=== PATIENT | male | born 1970 | race Caucasian/White ===

== ENCOUNTER 2020-09-16 15:21 | Outpatient (REF) | payer BC, SELFPAY ==
[2020-09-16 16:29] LABS: Influenza A PCR NEGATIVE (Negative); Influenza B PCR NEGATIVE (Negative); Resp Syncy Virus RNA Qual PCR NEGATIVE (Negative); SARS COV2 PCR INHOUSE NEGATIVE (Negative)
== END 2020-09-16 15:22 | disposition home or self-care (01) ==
LOC: HO.LNP 15:21
PROVIDERS: Visit Provider Internal Medicine
DX: Z20.828 Contact with and (suspected) exposure to other viral communicable diseases (principal)
CPT/HCPCS: 0241U

== ENCOUNTER 2022-07-15 12:05 | Day surgery (SDC) | payer BC, SELFPAY ==
--- NOTE | 2022-07-14 11:53 | HO.ANESPROP2 ---
Documented by User: Coleen Nixon NP 07/14/22 11:53 HPI - Anesthesia Eval Consult details Narrative: 51yo M for Colonoscopy [facility] Surgical History Surgical History Hx of hernia repair Social History Social History Patient Tobacco Use Status: Never used Tobacco Are you DNR?: No Advance Directives: No Advance Directives Information Provided: Yes Recently lost weight without trying: No Nutrition Risks: No Nutritional Risk Meds Allergies Allergy/AdvReac Type Severity Reaction Status Date / Time No Known Allergies Allergy Verified 07/14/22 11:34 Home Medications Medication Instructions Recorded Confirmed Last Taken Type No Known Home Meds 07/14/22 07/14/22 Unknown History Exam Exam Date and Time: July 14, 2022 1153 Assessment and Plan Assessment Anesthesia Assessment: Chart Reviewed Documented by User: Lilia Molina MD 07/15/22 12:53 [facility] Surgical History Surgical History Hx of hernia repair History of Problems with Anesthesia: No Social History Social History Patient Tobacco Use Status: Never used Tobacco Are you DNR?: No Advance Directives: No Advance Directives Information Provided: Yes Recently lost weight without trying: No Nutrition Risks: No Nutritional Risk Meds Allergies Allergy/AdvReac Type Severity Reaction Status Date / Time No Known Allergies Allergy Verified 07/14/22 11:34 Home Medications Medication Instructions Recorded Confirmed Last Taken Type No Known Home Meds 07/14/22 07/14/22 Unknown History Exam Airway Mallampati Class: III TM Dist: >3cm Neck ROM: Full Loose/Missing/Broken Teeth: No Heart: RRR Lungs: CTA Assessment and Plan Assessment Anesthesia Assessment: Anesthesia Plan Discussed and Chart Reviewed Final Anesthetic Review History of Problems with Anesthesia: No NPO: Yes ASA Class: I Final Preanesthetic Review: Meds/Allgs Chart Reviewed, Consent Obtained/Reviewed and Anes Risks/Benef Reviewed Patient Risk: Low Procedure Risk: Low Anesthetic Plan Anesthetic Plan: MAC: Disposition: Standard PACU
[2022-07-15 07:16] VITALS: BMI 25.0
[2022-07-15 12:06] VITALS: BP 123/75; PULSE 54; RESP 16; TEMP 36.6; O2SAT 98
[2022-07-15] MEDS: Lactated Ringers 1,000 ML 100 ML IVCONT (12:28)
--- NOTE | 2022-07-15 12:55 | MHC.SHP ---
Pre-Procedural Eval Section A Date of Service: 07/15/22 Section B Chief Complaint: screening Details of Present Illness: see H&P no changes Relevant Family History (Specify if Yes): No Relevant Social History: None Present Medications: None Medical History: No relevant PMH History of Previous Operations: No relevant previous surgery Allergies: Allergies Allergy/AdvReac Type Severity Reaction Status Date / Time No Known Allergies Allergy Verified 07/14/22 11:34 Review of Systems Sugical H&P ROS: Negative: Constitution, Cardiovascular, Respiratory, Neurological, Psychiatric, Hem-Onc, Allergic/Immunologic, Gastrointestinal, Genitourinary, Musculoskeletal, Integumentary, Endocrine and Eyes/Ears/Nose/Throat Exam Surgical H&P Exam: Normal: HEENT, Normal: Heart, Normal: Lungs, Normal: Extremities, Normal: Abdomen, Normal: Skin and Normal: Neurological Plan Diagnosis/Plan: Unchanged I have reviewed the history and physical and performed a pertinent physical examination on my patient. No changes have occurred unless specified.
--- NOTE | 2022-07-15 13:21 | P.BOP_ITS ---
Brief Operative Note Date of Service: 07/15/22 Pre-op diagnosis: screening Post-op diagnosis: same Procedure: colonoscopy Surgeon: Lion Veloz Anesthesia: MAC Was an Human Resources Vice President used for this Procedure?: No Estimated blood loss (mL): 0 Pathology: other Condition: stable Disposition: PACU
[2022-07-15 13:29] VITALS: BP 118/35; PULSE 56; RESP 17; TEMP 36.2; O2SAT 98
[2022-07-15 13:44] VITALS: BP 113/71; PULSE 53; RESP 16; TEMP 36.2; O2SAT 99
[2022-07-15 13:55] VITALS: BP 117/73; PULSE 52; RESP 16; TEMP 36.2; O2SAT 99
--- NOTE | 2022-07-16 00:22 | OP_ITS ---
SURGEON: Lion Veloz MD INDICATIONS: Colon cancer screening. PREOPERATIVE DIAGNOSIS: POSTOPERATIVE DIAGNOSIS: PROCEDURE PERFORMED: Colonoscopy to the terminal ileum with snare polypectomy on 07/15/22. ESTIMATED BLOOD LOSS: COMPLICATIONS: ANESTHESIA: Monitored anesthesia care. ASSISTANTS: SPECIMENS: DESCRIPTION OF PROCEDURE: History and physical performed. The risks and benefits of the procedure were explained to the patient. Informed consent was obtained. The patient was placed in the left lateral decubitus position. A digital rectal exam was performed and was found to be normal. The Olympus pediatric video colonoscope was introduced into the rectum and advanced to the cecum without difficulty. The cecum was identified by transillumination, palpation, and identification of the ileocecal valve. Examination was performed. The scope was removed. He tolerated the procedure well, returned to recovery area in stable condition. FINDINGS: The terminal ileum was examined and appeared normal. The visualized colonic mucosa was normal. The quality of the prep was excellent. Two polyps measuring less than 10 mm were removed with a snare at 40 and 30 cm respectively and were recovered with suction. No other polyps were identified. Retroflexed examination showed small internal hemorrhoids. IMPRESSION: Colon polyps. RECOMMENDATION: Follow up the biopsy results. MD LITTLE Escalante/[place] / [id number] MTDD
== END 2022-07-15 14:45 | disposition home or self-care (01) ==
PROVIDERS: PCP Internal Medicine; Visit Provider Internal Medicine Gastroenterology
PROC: 0DJD8ZZ Inspection of Lower Intestinal Tract, Via Natural or Artificial Opening Endoscopic (ICD-10-PCS; CPT 45378; principal; 2022-07-15 13:00)
DX: Z12.11 Encounter for screening for malignant neoplasm of colon (principal); K63.5 Polyp of colon; K64.8 Other hemorrhoids
CPT/HCPCS: 45385; 88305

== ENCOUNTER 2025-01-10 13:06 | Outpatient (AMB) | payer BC, SELFPAY ==
--- NOTE | 2025-01-10 13:07 | MHC.PC.OV ---
Vital Signs 01/10/25 13:08 Height 5 ft 10 in Weight 174 lb BMI 25.0 BP 120/76 Blood Pressure Location Lt brachial Position Sitting Pulse 65 Pulse Source Pulse Oximeter Temp 97.6 F Temp Source Axillary Pulse Oximetry (%) 99 Oxygen Delivery Method Room Air Intake Visit Reasons: Routine Otolaryngology Nurse Required: No Accompanied by: Self / Same As Patient Allergies No Known Allergies Allergy (Verified 01/10/25 13:08) Tobacco use date assessed: 01/10/25 Dental Screening Dental Screen Date: 01/10/25 Did you have a dental visit in the last 12 months?: Yes Did you have a dental problem in the last 6 months where you did not have access to dental care?: No [facility] Medical History (Updated 01/10/25 @ 13:48 by Fahad Cazares MD) Spasm of piriformis muscle Surgical History History of colonoscopy (~07/16/22) Hx of hernia repair Family History (Updated 01/10/25 @ 13:23 by Madelin Chu CMA) Mother No problems noted. Father No problems noted. Social History Housing: House Patient Tobacco Use Status: Never used Tobacco e-Cigarette/Vaping Use: Never Used service: No Current occupational status: employed Cognitive needs: No Hearing needs: No Vision needs: Yes (reading glasses) Questionnaire PHQ-9 Over the last 2 weeks, how often have you been bothered by any of the following problems? 1. Little interest or pleasure in doing things: not at all 2. Feeling down, depressed, or hopeless: not at all 3. Trouble falling or staying asleep, or sleeping too much: not at all 4. Feeling tired or having little energy: not at all 5. Poor appetite or overeating: not at all 6. Feeling bad about yourself - or that you are a failure or have let yourself or your family down: not at all 7. Trouble concentrating on things, such as reading the newspaper or watching television: not at all 8. Moving or speaking so slowly that other people could have noticed. Or the opposite - being so fidgety or restless that you have been moving around a lot more than usual: not at all 9. Thoughts that you would be better off or of hurting yourself in some way: not at all Total score: 0 Source: Developed by Drs. Alex Abraham, Anna Sullivan, Kenrick Morales and colleagues, with an educational esperanza from [employer]. Thrive Questionnaire Date Thrive assessed: 01/10/25 I am a: Patient Within the past 12 months, did the food you bought not last and you didn't have the money to get more?: Never true Within the past 12 months, did you worry whether your food would run out before you got money to buy more?: Never true Do you have trouble paying for medicines?: No Do you have trouble getting transportation to medical appointments?: No Do you have trouble paying your heating and electricity bill?: No Do you have trouble taking care of your child, family member or friend?: No Do you have trouble with day-to-day activities such as bathing, preparing meals, shopping, managing finances, etc.?: No Are you currently unemployed and looking for a job?: No Are you interested in more education?: No THRIVE Score: 0 AUDIT C Alcohol Use Questionnaire (AUDIT-C) 1. How often do you have a drink containing alcohol?: Monthly or less 2. How many drinks containing alcohol do you have on a typical day when you are drinking?: 1 or 2 3. How often do you have six or more drinks on one occasion?: Less than monthly Total Score: 2 MORENITA-7 AMB Questionnaire MORENITA-7 Date MORENITA - 7 assessed: 01/10/25 Feeling nervous, anxious, or on edge: 0 = Not at all Not being able to stop or control worryin = Not at all Worrying too much about different things: 0 = Not at all Trouble relaxin = Not at all Being so restless that it is hard to sit still: 0 = Not at all Becoming easily annoyed or irritable: 0 = Not at all Feeling afraid as if something awful might happen: 0 = Not at all Total MORENITA-7 score (0-4 normal; 5-9 mild; 10-14 moderate; 15-21 severe): 0 Source: Developed by Anna Cleary Kurt Kroenke and colleagues, with an educational esperanza from [employer]. Physical exam (Primary Care) Vital Signs: Last Vital Signs Temp 97.6 F 01/10/25 13:08 Pulse 65 01/10/25 13:08 BP 120/76 01/10/25 13:08 Pulse Ox 99 01/10/25 13:08 Oxygen Delivery Method Room Air 01/10/25 13:08 BMI result Body Mass Index 25.0 Tobacco/Smoking Status: Tobacco use Status Tobacco use date assessed 01/10/25 01/10/25 13:09 Patient Tobacco Use Status Never used Tobacco 01/10/25 13:09 e-Cigarette/Vaping Use Never Used 01/10/25 13:09 PHQ-9: PHQ-9 Score PHQ-9: Total score 0 01/10/25 13:24 Thrive Assessment: Date of Thrive Assessment Date Thrive assessed 01/10/25 01/10/25 13:09 Coding Level of Care Code New Pt Level 4 (52213) Complex EM visit Add On G2211 Diagnoses Spasm of piriformis muscle M62.838 Assessment & Plan Assessment & Plan (1) Spasm of piriformis muscle: Code(s): M62.838 - Other muscle spasm Category: Medical Plan: PT, muscle relaxants ordered. Pt was ordered not to exercise, lift weights or run for two weeks. To follow up if no improvement in symptoms Plan History of Present Illness The patient is a 54-year-old male presenting with leg pain. The symptoms started about three months ago, primarily associated with running. He reports a sharp pain after approximately 20 minutes into a run, which halts his activity. Post-exercise, he continues to experience soreness, specifically in scenarios where he remains seated for long durations. Despite engaging in stretches, the patient reports little change in symptoms. There is no report of trauma or medication use to manage pain. 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 Review of Systems - Musculoskeletal: Reports leg pain triggered by running; soreness after prolonged sitting - General: Denies medication use for leg pain Physical Exam General: Cooperative and healthy appearing Nutritional Appearance: Well nourished Orientation/consciousness: Patient oriented x3 Limitations: No limitations Head: Normal to inspection General: Appearance normal, both eyes and all related structures Neck: Normal visual inspection Chest: Normal palpation of entire chest wall Respiratory: N ormal respiratory effort Neurology: Patient oriented x3, reports leg pain when running, particularly in the right leg, with shooting pain down the back of the leg. Pain persists for three months, worsens with prolonged sitting, and causes noticeable limping. No medication taken. Results - Imaging: Recent CT chest scan conducted at [facility]; details requested but not reviewed during the visit Plan To address Sciatic Nerve Compression and Possible Piriformis Syndrome, physical therapy is advised, with treatments targeted at muscle relaxation and rehabilitation. The patient is instructed to refrain from running and similar lower body exercises for two weeks to minimize aggravation of symptoms. If needed, a muscle relaxant may be used. Consideration for referral to a specialist for further imaging if no improvement is noted in symptoms. Patient was informed and verbally consented to the use of an ambient scribe for clinic note documentation during this visit. Discussion Notes I discussed with the patient that the likely cause of his symptoms is sciatic nerve compression, potentially aggravated by activity and muscle tension around the piriformis and gluteal area. We reviewed the treatment plan emphasizing physical therapy and a temporary pause in strenuous activities, particularly those involving lower body exertion. I mentioned the option of muscle relaxants for reducing muscle tension and reminded him of the need for compliance to prevent chronic pain development. If symptoms persist, further imaging and specialist referral will be considered. We also checked for CT scan results at our center, which were conducted to screen for cancer, ensuring comprehensive care. The patient consented to the proposed management strategy. Patient Instructions - Attend physical therapy sessions as prescribed. - Avoid running and lower body exercises for two weeks. - Consider taking prescribed muscle relaxants at bedtime. - Follow up for further evaluation if symptoms persist. - Check for CT chest scan results with the clinic for review. - Return for further consultation if symptoms worsen. Orders: Orders PT Evaluation and Treatment Today M62.838 - Other muscle spasm Medications: New cyclobenzaprine 10 mg PO BEDTIME 14 tabs 0RF
[2025-01-10 13:08] VITALS: BP 120/76; PULSE 65; TEMP 36.4; O2SAT 99; BMI 25.0
--- OUTSIDE RECORDS SUMMARY | 2025-01-10 15:34 | XMS_ITS | Patient Health Record ---
Author Organization [facility] Address [address] [place] [address] Care Team Providers Care Dietitian Research Name Role Phone Reginald Dyer MD Primary Care Provider Lion Torres Jr Unavailable [phone] Allergies No Known Allergies Reason For Referral No Information Medications Medication SIG (Take, Route, Frequency, Duration) Notes Start Date End Date Status MiraLax (colon prep) 17 GM/SCOOP mixed with Gatorade or Crystal Light Orally begin at 5:00 p.m. the day before the procedure for 1 day 05/25/2022 Active Immunizations Vaccine Route Administration Date Status Comme nts Influenza Unknown 2021 Administered Social History Tobacco Use: Social History Observation Description Date Details (start date - stop date) Never Smoker NA - NA Tobacco Use/Smoking Question Answer Notes Patient is a nonsmoker Alcohol Screen Question Answer Notes Did you have a drink contain ing alcohol in the past year? Yes How often did you have a dri nk containing alcohol in the past year? 2 to 3 times a week (3 points) How many drinks did you have on a typical day when you were drinking in the past year? 3 or 4 drinks (1 point) How often did you have 6 or more drinks on one occasion in the past year? Never (0 point) Points 4 Interpretation Positive Problems Problem Type SNOMED Code ICD Code Onset Dates Problem Status W/U Status Risk Notes Problem 404890289 Colon cancer screening (Z12.11) Active confirmed Problem 910809186 Encounter for other preprocedural examination (Z01.818) Active confirmed Plan Of Treatment Future Test Test Name Order Date COLONOSCOPY 05/25/2022 Insurance Providers Payer Name Payer Address Payer Phone Subscriber Number Group Number Insured Name Patient Relationship to Insured Coverage Start Date Coverage End Date [facility] [address] [place] [address] [id number] CHANA NAVARRETE Self - patient is the insured Medical (General) History Surgical History Surgery Date(Month/Year) hernia repair 1976
--- OUTSIDE RECORDS SUMMARY | 2025-01-10 15:34 | XMS_ITS | Patient Health Record ---
Author Organization [facility] Address [address] [place] [address] Care Team Providers Care Computer Forensics Technician Name Role Phone Reginald Dyer MD Primary Care Provider Bertha London Unavailable [phone] Allergies No Known Allergies Reason For Referral No Information Medications Medication SIG (Take, Route, Frequency, Duration) Notes Start Date End Date Status Fish Oil Active Vitamin D3 Active Social History Tobacco Use: Social History Observation Description Date Details (start date - stop date) Never Smoker NA - NA Tobacco Use/Smoking Question Answer Notes Are you a: nonsmoker Additional Findings: Tobacco Non-User Current no n-smoker Alcohol Screen Question Answer Notes Did you have a drink contain ing alcohol in the past year? Yes How often did you have a dri nk containing alcohol in the past year? 2 to 4 times a month (2 points) Points 2 Interpretation Negative Tobacco use other than smoking: Question Answer Notes Are you an other tobacco user? No Problems Problem Type SNOMED Code ICD Code Onset Dates Problem Status W/U Status Risk Notes Problem 303620186 Equinus contracture of left ankle (M24.572) Active confirmed Problem 128043089 Equinus contracture of right ankle (M24.571) Active confirmed Plan Of Treatment No Information Insurance Providers Payer Name Payer Address Payer Phone Subscriber Number Group Number Insured Name Patient Relationship to Insured Coverage Start Date Coverage End Date [employer] [address] [place] [address] [id number] Kareem Downing Self - patient is the insured Medical (General) History Medical History History ICD Code Broken bones covid-19 Hiatal hernia Surgical History Surgery Date(Month/Year) Hernia Repair 1975
--- OUTSIDE RECORDS SUMMARY | 2025-01-10 15:34 | XMS_ITS | Clinical Summary ---
Author Organization [facility] [address] [facility] [address] Address [address] [place] [address] Phone Care Team Providers Care Welt Sewer Name Role Phone Physician, No Pcp Primary Care Provider Unavaila ble Encounters Date Type Department Care Team Description 12/26/2024 7:15 AM EDT - 12/26/2024 11:59 PM EDT Hospital Encounter [facility] Scan [address] [place] [id number] Occupational exposure to air contaminants Discharge Disposition: Home or Self Care 12/13/2024 Telephone Lung Screening Program - [address] [place] [phone] Mira Burnette [place] FF from Last 3 Months Social History Tobacco Use Types Packs/Day Years Used Date Smoking Tobacco: Never Assessed Sex and Gender Information Value Date Recorded Sex Assigned at Not on file Legal Sex Male 3:44 PM EDT Gender Identity Not on file Sexual Orientation Not on file Plan of Treatment Health Maintenance Due Date Last Done Comments DTaP,Tdap,and Td Vaccines (1 - Tdap) 1991 Hepatitis B Vaccines (1 of 3 - 19+ 3-dose series) 1991 Pneumococcal Vaccine: 50+ Years (1 of 1 - PCV) 2022 Zoster Vaccines (1 of 2) 2022 COVID-19 Vaccine ( - season) 2024 08/28/2021, 12/10/2020, 11/07/2020 Cholesterol Screening (Lipid Panel) 12/14/2024 Colorectal Cancer Screening: Colonoscopy 12/14/2024 Depression Screening 12/14/2024 HIV Screening 12/14/2024 Hepatitis C Screening 12/14/2024 Social Influencers of Health Screening 12/14/2024 Influenza Vaccine (Season Ended) 2025 07/14/2021, 05/29/2020, 07/22/2018, Additional history exists HIB Vaccines Aged Out No longer eligi ble based on patient's age to complete this topic HPV Vaccines Aged Out No longer eligi ble based on patient's age to complete this topic Hepatitis A Vaccines Aged Out No long er eligible based on patient's age to complete this topic IPV Vaccines Aged Out No longer eligi ble based on patient's age to complete this topic MMR Vaccines Aged Out No longer eligi ble based on patient's age to complete this topic Meningococcal ACWY Vaccine Aged Out N o longer eligible based on patient's age to complete this topic Meningococcal B Vaccine Aged Out No l onger eligible based on patient's age to complete this topic Pneumococcal Vaccine: Pediatrics (0 to 5 Years) and At-Risk Patients (6 to 64 Years) Aged Out No longer eligible based on patient's age to complete this topic RSV Immunization Patients Under 20 months Aged Out No longer eligible based on patient's age to complete this topic Varicella Vaccines Aged Out No longer eligible based on patient's age to complete this topic Procedures Procedure Name Priority Date/Time Associated Diagnosis Comments CT CHEST WO CONTRAST Routine 12/26/2024 7:22 AM EDT Occupational exposure to air contaminants from Last 3 Months Results * CT Chest wo Contrast (12/26/2024 7:22 AM EDT) Anatomical Region Laterality Modality Body Computed Tomogra phy 12/28/2024 9:09 AM EDT Impressions 12/28/2024 9:18 AM EDT No suspicious mass or nodule. Postinflammatory changes are minimal. ?? -------- FINAL REPORT -------- Dictated By: Manish Sharif Dictated Date: 12/28/2024 09:09 ET Assigned Physician: Manish Sharif Reviewed and Electronically Signed By: Manish Sharif Signed Date: 12/28/2024 09:18 ET Workstation ID: [id number] Transcribed By: Self Edit Transcribed Date: 12/28/2024 09:09 ET Narrative 12/28/2024 9:18 AM EDT EXAMINATION: CT CHEST WITHOUT CONTRAST CLINICAL INFORMATION: Occupational exposure to contaminants. ??[facility] [place] screening program COMPARISON: None ?? TECHNIQUE: Multidetector CT. Examination of the chest. Examination of the chest without IV contrast. Reformatting in the coronal and sagittal planes. DLP: 126 mGy-cm Dose optimization was performed including the use of low-dose iterative reconstruction technique with automatic exposure control based on patient size. Type of contrast: None Volume of IV contrast: None Volume of contrast discarded: 0 mL FINDINGS: LUNG: No abnormality of the trachea or mainstem bronchi. No suspicious mass or nodule. There are a few scattered calcified granulomata. There are a few tiny juxtapleural opacities in the apices which are likely postinflammatory. No honeycomb formation. Minor linear opacity anterior left upper lobe medially ?? MEDIASTINUM: ??There are no enlarged mediastinal or hilar lymph nodes. No suspicious abnormality of the esophagus CARDIAC: The heart is not enlarged. No pericardial fluid or thickening ?? CORONARY CALCIFICATION: ??No coronary calcifications demonstrated. VASCULAR: There is no thoracic aortic aneurysm. The main pulmonary artery is normal caliber ?? PLEURA: There is no pleural fluid or pneumothorax ?? AXILLA/CHEST WALL: There are no enlarged axillary lymph nodes. No chest wall mass demonstrated ?? VISUALIZED UPPER ABDOMEN: ??No suspicious abnormality on limited assessment of the visualized upper abdomen MUSCULOSKELETAL: No suspicious focal bony lesion. ??Healed posterior right rib fractures. Procedure Note Manish Sharif MD - 12/28/2024 EXAMINATION: CT CHEST WITHOUT CONTRAST CLINICAL INFORMATION: Occupational exposure to contaminants. [facility] [place] screening program COMPARISON: None TECHNIQUE: Multidetector CT. Examination of the chest. Examination of the chest without IV contrast. Reformatting in the coronal and sagittal planes. DLP: 126 mGy-cm Dose optimization was performed including the use of low-dose iterativereconstruction technique with automatic exposure control based on patientsize. Type of contrast: None Volume of IV contrast: None Volume of contrast discarded: 0 mL FINDINGS: LUNG: No abnormality of the trachea or mainstem bronchi. No suspicious mass or nodule. There are a few scattered calcifiedgranulomata. There are a few tiny juxtapleural opacities in the apiceswhich are likely postinflammatory. No honeycomb formation. Minor linear opacity anterior left upper lobemedially MEDIASTINUM: There are no enlarged mediastinal or hilar lymph nodes. Nosuspicious abnormality of the esophagus CARDIAC: The heart is not enlarged. No pericardial fluid or thickening CORONARY CALCIFICATION: No coronary calcifications demonstrated. VASCULAR: There is no thoracic aortic aneurysm. The main pulmonary arteryis normal caliber PLEURA: There is no pleural fluid or pneumothorax AXILLA/CHEST WALL: There are no enlarged axillary lymph nodes. No chestwall mass demonstrated VISUALIZED UPPER ABDOMEN: No suspicious abnormality on limited assessmentof the visualized upper abdomen MUSCULOSKELETAL: No suspicious focal bony lesion. Healed posterior rightrib fractures. IMPRESSION: No suspicious mass or nodule. Postinflammatory changes are minimal. -------- FINAL REPORT -------- Dictated By: Manish Sharif Dictated Date: 12/28/2024 09:09 ET Assigned Physician: Manish Sharif Reviewed and Electronically Signed By: Manish Sharif Signed Date: 12/28/2024 09:18 ET Workstation ID: [id number] Transcribed By: Self Edit Transcribed Date: 12/28/2024 09:09 ET Sana Gutiérrez NP IMG CT PROCEDURES Final Res ult from Last 3 Months Insurance [facility] [employer] Care Teams Welt Sewer Relationship Specialty Start Date End Date Physician, No Pcp PCP - General 12/26/24
== END 2025-01-10 13:47 | disposition home or self-care (01) ==
LOC: HO.HMCHD 13:06
PROVIDERS: PCP Internal Medicine; Visit Provider Internal Medicine
DX: M62.838 Other muscle spasm (principal)

== ENCOUNTER → 2025-01-10 13:06 | Outpatient (BNVA) | payer BC, SELFPAY | PROVIDERS: PCP Internal Medicine; Visit Provider Internal Medicine | DX: Z13.89 Encounter for screening for other disorder (principal) ==